=== PATIENT | male | born 1975 | race Hispanic/Latino ===

== ENCOUNTER 2021-11-01 10:53 | Outpatient (CLI) | payer BC, SELFPAY ==
--- NOTE | ~2021-11-01 | XR_ITS ---
XR shoulder LT min 2V DATE: 11/01/2021 11:15 INDICATION: Left shoulder pain following wrestling injury TECHNIQUE: 4 views of left shoulder COMPARISON: None FINDINGS: There is a screw through the midshaft of the left clavicle and a plate along the superior a spect of the clavicle, secured by 7 superolateral inferiorly directed screws. No residual fracture li ne is evident. Normal alignment at the acromioclavicular and glenohumeral joints. No recent fracture or dislocation, periosteal reaction or bone destruction or abnormal soft tissue calcification of the left shoulder IMPRESSION: Healed internally fixated old left clavicular shaft fracture; otherwise negative Reviewed, dictated and finalized at location B. IMPRESSION: Healed internally fixated old left clavicular shaft fracture; other romero negative
== END 2021-11-01 10:54 ==
LOC: MICIMG 10:55
PROVIDERS: PCP Internal Medicine; Visit Provider Chiropractor
DX: M25.512 Pain in left shoulder (principal)
CPT/HCPCS: 73030

== ENCOUNTER 2021-11-23 07:08 | Outpatient (CLI) | payer BC, SELFPAY ==
--- NOTE | ~2021-11-23 | MR_ITS ---
EXAMINATION: MR shoulder LT wo con DATE: 11/23/2021 07:53 INDICATION: Left rotator cuff tear TECHNIQUE: Magnetic resonance imaging (MRI) of the left shoulder was performed without intravenous co ntrast. Sequences included axial fluid sensitive FSE STIR, coronal oblique T1-weighted FSE, coronal o blique fluid sensitive FSE STIR, coronal oblique PD-weighted FS FSE sagittal T1-weighted FSE, sagitt al fluid sensitive FSE STIR. COMPARISON: Left shoulder radiographs dated 11/01/2021 FINDINGS: Bones: Magnetic field artifact along the left clavicle excision with interfragmentary screw and lateral plat e and screw fixation as seen on prior radiographs. No fracture or pathologic marrow replacing process . Mild cystic and hypertrophic change along the superior facet of the greater tuberosity. Coracoacromial arch: The acromion undersurface is curved in morphology (type II). The coracoacromial ligament is normal. A cromioclavicular joint is partially obscured with mild osteoarthritis evident on the recent prior rad iographs. Rotator cuff: Moderate supraspinatus and infraspinatus tendinopathy. There is a small full-thickness tear of the rodgers praspinatus tendon along the superior facet footplate of the greater tuberosity. The tear measures 1. 3 similar AP and 2.3 cm medial to lateral. There are a few residual intact fibers at the anteriormost aspect of the tendon. The teres minor tendon is normal. Mild subscapularis tendinopathy with very sm all intrasubstance split tear at the cephalad third of the lesser tuberosity footplate which likely e xtends to a 9 x 2 x 2 mm ganglion cyst within the subscapularis tendon approximately 3 cm medial from the footplate. Normal rotator cuff muscle bulk and signal. Biceps tendon, glenoid labrum and glenohumeral cartilage: Long head of the biceps tendon is normal. There is a superior, anterior to posterior tear of the susan oid labrum (SLAP tear) of the 11:00-12:00 position of the posterior superior glenoid labrum. Normal a nterosuperior sublingual foramen. Focal deep chondral fissuring with underlying subarticular cystlike changes at the posterior inferior glenoid. These cystic change extends approximately 11 mm craniocau gladys and 8 mm AP on the sagittal imaging. Partial-thickness cartilage loss with mild chondral surface irregularity along the inferomedial and posterior inferior aspect of the humeral head. Fluid: Small glenohumeral joint effusion with proportional extension of fluid into the long head biceps tend on sheath. No full-thickness rotator cuff tear defect into the subacromial/subdeltoid bursa. No loose osteochondral bodies. IMPRESSION: 1. Moderate supraspinatus and infraspinatus tendinopathy with small full-thickness tear along the sup erior facet footplate of the supraspinatus tendon. 2. Mild subscapularis tendinopathy with very small longitudinal split tear at the cephalad third of t he tendon. 3. Mild glenohumeral osteoarthritis with high-grade chondral malacia at the inferomedial aspect of th e glenoid. 4. SLAP tear at the 11:00-12:00 position of the posterior superior glenoid labrum. 5. Old left clavicle fracture with fragment. Screw and plate and screw fixation which obscures the cl avicle and acromioclavicular joint. Reviewed, dictated and finalized at location A. IMPRESSION: 1. Moderate supraspinatus and infraspinatus tendinopathy with small full-thickn ess tear along the superior facet footplate of the supraspinatus tendon. 2. Mild subscapularis tendinopathy with very small longitudinal split tear at t he cephalad third of the tendon. 3. Mild glenohumeral osteoarthritis with high-grade chondral malacia at the inf eromedial aspect of the glenoid. 4. SLAP tear at the 11:00-12:00 position of the posterior superio
== END 2021-11-23 07:09 ==
PROVIDERS: PCP Internal Medicine; Visit Provider Chiropractor
DX: M75.102 Unspecified rotator cuff tear or rupture of left shoulder, not specified as traumatic (principal); M19.012 Primary osteoarthritis, left shoulder; S43.432A Superior glenoid labrum lesion of left shoulder, initial encounter; X58.XXXA Exposure to other specified factors, initial encounter
CPT/HCPCS: 73221

== ENCOUNTER 2025-01-10 17:37 | Emergency (ER) | payer BC, SELFPAY ==
[2025-01-10 17:40] VITALS: BP 154/105; PULSE 43; RESP 22; TEMP 36.2; O2SAT 98
--- NOTE | 2025-01-10 17:42 | ED_ITS ---
HPI - Allergic Reaction General Chief complaint: Allergic Reaction <LAKESHA Monae Last Filed: 01/10/25 17:54> Stated complaint: allergic reaction <LAKESHA Monae Last Filed: 01/10/25 17:54> Time Seen by Provider: 01/10/25 17:42 <LAKESHA Monae Last Filed: 01/10/25 17:54> Focused HPI: Patient is a 49 y/o male who presents to the ED with concern for allergic reaction. Patient reports he began his prep today for a colonoscopy tomorrow. Was instructed to take 12 tablets of SUTAB. States he got through 6 of the tabs and began sneezing and feeling itchy all over. States he broke out into hives. States he is feeling very diaphoretic, short of breath, nauseous. States his face feels numb. GENERAL: Uncomfortable-appearing, well-nourished, and moderate acute distress HEAD: Normocephalic, atraumatic. CHEST: Clear to auscultation. ?No respiratory distress. Tachypneic. No stridor. HEART: Tachycardic with regular rhythm.? SKIN: Diffuse urticaria to trunk, extremities, abdomen. Pallor to face and lips NEURO: ?Alert and oriented x3. Patient screened in triage and initial orders placed.? ?Additional care and disposition to be based upon?diagnostic testing and treatment. <LAKESHA Monae Last Filed: 01/10/25 17:54> Source: patient <LAKESHA Monae Last Filed: 01/10/25 17:54> Mode of arrival: ambulatory <LAKESHA Monae Last Filed: 01/10/25 17:54> Limitations: no limitations <LAKESHA Monae Last Filed: 01/10/25 17:54> Related Data Allergies/adverse reactions: Allergies Allergy/AdvReac Type Severity Reaction Status Date / Time cortisone Allergy Unknown Rash Verified 01/10/25 17:52 <LAKESHA Monae Last Filed: 01/10/25 17:54> Review of Systems Review of Systems: All systems reviewed & are unremarkable except as noted in HPI and below <Aleisha Brunner PA-C - Last Filed: 01/10/25 20:55> PMFSH Past Medical History Medical History: Medical History (Updated 01/10/25 @ 20:28 by Aleisha Brunner PA-C) No history of diabetes mellitus No history of hypertension High cholesterol Notes is elevated, not on medication for it Torn ligament lt wrist and hand <Mikki Diana PA-C - Last Filed: 01/10/25 17:54> Surgical History Surgical History: Surgical History Clavicle fracture lt side with surgery <Mikki Diana PA-C - Last Filed: 01/10/25 17:54> Family History Family History: Family History (Updated 02/08/19 @ 11:47 by Mikki Dominguez) Father History of quadruple bypass <Mikki Diana PA-C - Last Filed: 01/10/25 17:54> Social History Social History: Social History Smoking status: Never smoker Alcohol intake: current Gender identity (if verbalized by the patient): Male <Mikki Diana PA-C - Last Filed: 01/10/25 17:54> Exam Narrative: GENERAL: Well-appearing, well-nourished, and in no acute distress. HEAD: Normocephalic, atraumatic. EYES: EOMI. ENT: Nares clear, no rhinorrhea or epistaxis. Mucous membranes moist. Oropharynx without tonsillar hypertrophy exudate or other lesions. NECK: Supple. No adenopathy or masses. CHEST: Clear to auscultation. No respiratory distress. No wheezes rales or rhonchi HEART: Regular rate and rhythm. No murmur heard. Normal peripheral pulses. EXTREMITIES: Normal range of motion. No edema. SKIN: Warm, dry. Diffuse urticaria NEURO: No focal deficits. Alert and oriented x3. PSYCH: Normal mood and affect <Aleisha Brunner PA-C - Last Filed: 01/10/25 20:55> Course Vital Signs Vital signs: Vital Signs Temperature 97.2 F L 01/10/25 17:40 Pulse Rate 43 L 01/10/25 17:40 Respiratory Rate 22 H 01/10/25 17:40 Blood Pressure 154/105 H 01/10/25 17:40 Pulse Oximetry 98 01/10/25 17:40 Oxygen Delivery Room Air 01/10/25 17:40 Temperature 97.2 F L 01/10/25 17:40 Pulse Rate 64 01/10/25 20:01 Respiratory Rate 22 H 01/10/25 20:01 Blood Pressure 151/96 H 01/10/25 20:01 Pulse Oximetry 100 01/10/25 20:01 Oxygen Delivery Room Air 01/10/25 17:40 <LAKESHA Monae Last Filed: 01/10/25 17:54> Vital Signs Temperature 97.2 F L 01/10/25 17:40 Pulse Rate 43 L 01/10/25 17:40 Respiratory Rate 22 H 01/10/25 17:40 Blood Pressure 154/105 H 01/10/25 17:40 Pulse Oximetry 98 01/10/25 17:40 Oxygen Delivery Room Air 01/10/25 17:40 Temperature 97.2 F L 01/10/25 17:40 Pulse Rate 64 01/10/25 20:01 Respiratory Rate 22 H 01/10/25 20:01 Blood Pressure 151/96 H 01/10/25 20:01 Pulse Oximetry 100 01/10/25 20:01 Oxygen Delivery Room Air 01/10/25 17:40 <LAKESHA Gupta Last Filed: 01/10/25 20:55> MDM - Allergic Reaction MDM Narrative Medical decision making narrative: MSE by GEOVANY in triage <LAKESHA Monae Last Filed: 01/10/25 17:54> MSE by GEOVANY in triage Patient presents to the ER for itchy rash, swelling. Had just taken doses of his prep pills for his colonoscopy. Patient with diffuse hives upon arrival. Feelings of difficulty breathing. Given epinephrine, pepcid, benadryl, iv fluids. Monitored in the ER for several hours with relief. Will be given prescription for epi-pen. He was given warnings to return to the ER <LAKESHA Gupta Last Filed: 01/10/25 20:55> Differential Diagnosis Differential diagnosis: Likely anaphylaxis, allergic reaction, angioedema, contact dermatitis, adverse reaction to drug and urticaria <LAKESHA Gupta Last Filed: 01/10/25 20:55> Critical Care Time Critical Care Time Critical Care Time: No <LAKESHA Gupta Last Filed: 01/10/25 20:55> Discharge Plan Discharge Clinical Impression: Allergic reaction Qualifiers: Encounter type: initial encounter Qualified Code(s): T78.40XA - Allergy, unspecified, initial encounter <LAKESHA Monae Last Filed: 01/10/25 17:54> Patient Disposition: Home <LAKESHA Monae Last Filed: 01/10/25 17:54> Condition: Improved <LAKESHA Monae Last Filed: 01/10/25 17:54> Instructions: General Allergic Reaction (ED) <LAKESHA Monae Last Filed: 01/10/25 17:54> Additional Instructions: Return to the emergency department if you experience difficulty swallowin g, trouble breathing, or any other symptoms that are concerning to you Take a Pepcid and Zyrtec daily. Benadryl as needed Follow-up with your primary care doctor <LAKESHA Monae Last Filed: 01/10/25 17:54> Patient Language: Ecuadorean <LAKESHA Monae Last Filed: 01/10/25 17:54> Prescriptions: New epinephrine [Auvi-Q] 0.3 mg/0.3 mL auto-injector 0.3 mg IM Q5-15M PRN (Reason: anaphylaxis) Qty: 2 0RF Rx Instructions: do not exceed 3 doses per episode <LAKESHA Monae Last Filed: 01/10/25 17:54> Follow-up/Referrals: Fabian Dupree DO [Physician, Internal Medicine] <Mikki Diana PA-C - Last Filed: 01/10/25 17:54>
[2025-01-10] MEDS: FAMOTIDINE 20 MG/2 ML VIAL IV PUSH (17:53)
[2025-01-10] MEDS: SODIUM CHLORIDE 0.9% IV 1,000 ML 999 ML IV CONT (17:55)
[2025-01-10] MEDS: EPINEPHrine HCL INJ 1 MG/ML AMPUL 0.3 MG IM (17:57)
--- OUTSIDE RECORDS SUMMARY | 2025-01-10 19:08 | XMS_ITS | Encounter Summary ---
Author Organization [facility] Address [address] [place] [address] Care Team Providers Care Elevator Troubleshooter Name Role Phone Fabian Dupree DO Primary Care Provider [phone] Janeen Nuñez Primary Care Provider [phone] Encounter Details Date Type Department Care Team (Late st Contact Info) Description 11/28/2019 Prep for Procedure [facility] [place], [place] [address] Aamir Rodas MD [address] [id number] Social History Tobacco Use Types Packs/Day Years Used Date Smoking Tobacco: Never Smokeless Tobacco: Never Alcohol Use Standard Drinks/Week Comments Yes 0 (1 standard drink = 0.6 oz pur e alcohol) once every 3 months Sex and Gender Information Value Date Recorded Sex Assigned at Male 05/20/2024 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 No / Unsure 11/25/2019 3:50 PM CDT documented as of this encounter Plan of Treatment Not on file documented as of this encounter Visit Diagnoses Diagnosis Weight loss- Primary Loss of weight documented in this encounter Care Teams Elevator Troubleshooter Relationship Specialty Start Date End Date Fabian Dupree DO [address] [facility] [address] [place] [address] PCP - General INTERNAL MEDICINE 10/19/20 05/01/23 Janeen Nuñez FNP [facility] [place] [address] PCP - General Nurse Practitioner Family 05/02/23 documented as of this encounter
--- OUTSIDE RECORDS SUMMARY | 2025-01-10 19:08 | XMS_ITS | Encounter Summary ---
Author Organization [facility] Address [address] [place] [address] Care Team Providers Care Enrollment Services Dean Name Role Phone Fabian Dupree DO Primary Care Provider [phone] Janeen Nuñez Primary Care Provider [phone] Encounter Details Date Type Department Care Team (Late st Contact Info) Description 10/20/2020 Prep for Procedure [facility] [place] [address] Pipe Chase DO [address] [place] [address] [address] [place] [address] Social History Tobacco Use Types Packs/Day Years Used Date Smoking Tobacco: Never Smokeless Tobacco: Never Alcohol Use Standard Drinks/Week Comments Yes 0 (1 standard drink = 0.6 oz pur e alcohol) once every 3 months Sex and Gender Information Value Date Recorded Sex Assigned at Male 05/20/2024 9:17 AM 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 Legal Sex Male 8:02 PM CDT Gender Identity Not on file Sexual Orientation Not on file documented as of this encounter Plan of Treatment Not on file documented as of this encounter Visit Diagnoses Diagnosis Ulcerative colitis ([facility]/HCC [facility]/HCC)- Primary Ulcerative colitis, unspecified documented in this encounter Care Teams Enrollment Services Dean Relationship Specialty Start Date End Date Fabian Dupree DO [address] [place] [address] PCP - General INTERNAL MEDICINE 10/19/20 05/01/23 Janeen Nuñez FNP [address] [place] [address] PCP - General Nurse Practitioner Family 05/02/23 documented as of this encounter
--- OUTSIDE RECORDS SUMMARY | 2025-01-10 19:08 | XMS_ITS | Clinical Summary ---
Author Organization [facility] Address [address] [place] [address] Care Team Providers Care Knockdown Worker Name Role Phone Janeen Nuñez NOHEMI Primary Care Provider [phone] Allergies Active Allergy Reactions Criticality Noted Date Comments Octacosanol Hives 11/25/2019 Cortisone Hives 11/25/2019 Bisacodyl Hives 03/14/2022 Polyethylene Glycol Hives 03/14/2022 Medications albuterol sulfate HFA 108 (90 Base) MCG/ACT inhalerIndicatio ns:Cough INHALE 2 PUFFS INTO THE LUNGS BY MOUTH EVERY 6 HOURS NEEDED FOR WHEEZING 8.5 g 4 Active famotidine (PEPCID) 20 MG tabletIndication s:Gastroesophage al reflux disease, unspecified whether esophagitis present Take 1 tablet (20 mg total) by mouth 2 (two) times daily. 60 tablet 1 4 Active SYRINGE-NEEDLE, DISP, 3 ML (LUER LOCK SAFETY SYRINGES) 23G X 1 3 ML MiscIndications: Hypogonadism in male,Low testosterone in male To use with testosterone injections every 7 days 50 each 1 4 Active mesalamine ER (APRISO) 0.375 g CAPSULE SR 24 HR 24 hr capsuleIndicatio ns:Other ulcerative colitis without complication (CMS/HCC HHS/HCC) TAKE 1 CAPSULE(375 MG) BY MOUTH DAILY 30 capsule 1 4 Active testosterone cypionate (DEPO TESTOSTERONE) 200 MG/ML injectionIndicat ions:Hypogonadis m in male,Low testosterone in male ADMINISTER 1 ML(200 MG) IN THE MUSCLE EVERY 7 DAYS 10 mL 2 5 Active Active Problems Problem Noted Date Diagnosed Date Mass of chest wall, left 12/01/2023 Gastroesophageal reflux dise ase, unspecified whether esophagitis present 12/01/2023 Class 1 obesity due to exces s calories without serious comorbidity with body mass index (BMI) of 32.0 to 32.9 in adult 05/02/2023 Vitamin D deficiency, unspecified 05/02/2023 Hx of pulmonary embolus 05/02/2023 Other ulcerative colitis without complication Primary insomnia 05/02/2023 Hypogonadism in male 05/02/2023 Low testosterone in male 05/02/2023 Acute bronchitis, unspecified organism 4 Tear of left scapholunate ligament 02/25/2019 Overview (05/02/2023): Added automatically from request for surgery [id number] Chronic pain of left wrist 02/25/2019 Overview (05/02/2023): Added automatically from request for surgery [id number] Encounters Date Type Department Care Team Description 11/15/2024 BuyWithMe Message Enc [facility] Family & Internal Medicine [address] [phone] Janeen Nuñez FNP gastrologist from Last 3 Months Immunizations Immunization Administration Dates Next Due Hepatitis A (Havrix [address]) 01/21/2023 Influenza Adult (Generic) 02/14/2019 Tdap (Adacel) 05/02/2023 Family History Medical History Relation Comments Diabetes Father Heart Disease Father Relation Status Comments Father Maternal Grandfather Maternal Grandmother Mother Alive Paternal Grandfather Paternal Grandmother Social History Tobacco Use Types Packs/Day Years Used Date Smoking Tobacco: Never Passive Smoke Exposure: Never Smokeless Tobacco: Never Alcohol Use Standard Drinks/Week Comments Not Currently 0 (1 standard drink = 0.6 oz pur e alcohol) once every 3 months PHQ-2 Answer Date Recorded Patient Health Questionnaire-2 Score 0 07/02/2024 Sex and Gender Information Value Date Recorded Sex Assigned at Male 05/20/2024 9:17 AM 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 Legal Sex Male 8:02 PM CDT Gender Identity Not on file Sexual Orientation Not on file Last Filed Vital Signs Vital Sign Reading Time Taken Comments Blood Pressure 128/86 07/02/2024 8:20 AM CDT Pulse 71 07/02/2024 8:20 AM CDT Temperature 36.8 C (98.2 F) 07/02/2024 8:20 AM CDT Respiratory Rate 16 07/02/2024 8:20 AM CDT Oxygen Saturation 96% 07/02/2024 8:20 AM CDT Inhaled Oxygen Concentration - - Weight 100.2 kg (220 lb 12.8 oz) 07/02/2024 8:20 AM CDT Height 175.3 cm (5' 9) 07/02/2024 8:20 AM CDT Body Mass Index 32.61 07/02/2024 8:20 AM CDT Plan of Treatment Health Maintenance Due Date Last Done Comments Annual Physical 1977 Hepatitis B Vaccines (1 of 3 - 19+ 3-dose series) 1993 Pneumococcal Vaccine: 50+ Years (1 of 1 - PCV) 2024 Zoster Vaccines (1 of 2) 2024 COVID-19 Vaccine (1 - 2023- season) 2024 Influenza Adult (#1) 2024 02/14/2019 Colorectal Cancer Screening Colonoscopy (10 Years) 03/14/2032 03/14/2022, 03/14/2022, 03/14/2022, Additional history exists DTaP, Tdap and Td Vaccines (2 - Td or Tdap) 05/02/2033 05/02/2023 Hepatitis C Completed 03/14/2022, 09/15/2020 Hepatitis A Vaccines Aged Out 01/21/2023 No long er eligible based on patient's age to complete this topic PHQ-2 (Physician [place]) Completed 07/02/2024 Meningococcal B Vaccine Aged Out No l onger eligible based on patient's age to complete this topic Meningococcal Vaccine Aged Out No nona denia eligible based on patient's age to complete this topic RSV Immunizations Under 20 Months Aged Out No longer eligible based on patient's age to complete this topic Procedures Procedure Name Priority Date/Time Associated Diagnosis Comments HC EIA QL HEPATITIS ABC B AG Routine 03/14/2022 8:03 AM GARMENT CUTTER COLONOSCOPY Routine 03/14/2022 6:07 AM GARMENT CUTTER from Last 3 Months or Most Recently Relevant to Health Maintenance Results * HEPATITIS A,B,& C (03/14/2022 8:03 AM GARMENT CUTTER) HEPATITIS B SURFACE AG NON-REACTIVE NON-REACT SILVANO 03/14/2022 10:03 AM GARMENT CUTTER [facility] HEP B CORE TOTAL AB NON-REACTIVE NON-REACT SILVANO 03/14/2022 10:03 AM GARMENT CUTTER [facility] HEP B SURFACE AB REACTIVE 03/14/2022 10:03 AM GARMENT CUTTER [facility] HAV IGM NON-REACTIVE NON-REACT SILVANO 03/14/2022 10:03 AM GARMENT CUTTER [facility] HEPATITIS C AB NON-REACTIVE NON-REACT SILVANO 03/14/2022 10:03 AM GARMENT CUTTER [facility] 03/14/2022 8:03 AM GARMENT CUTTER Pipe Chase DO LABORATORY Final Result [facility] [address] [place] [address], [place] [phone] * COLONOSCOPY GENERIC (SCAN ORDER) (03/14/2022) 03/14/2022 [facility] Scanned SCANNING Final Resu lt from Last 3 Months or Most Recently Relevant to Health Maintenance Insurance [employer] Care Teams Knockdown Worker Relationship Specialty Start Date End Date Janeen Nuñez FNP [address] [place], [place] [phone] PCP - General Nurse Practitioner Family 05/02/23
--- OUTSIDE RECORDS SUMMARY | 2025-01-10 19:08 | XMS_ITS | Clinical Summary ---
Author Organization [facility] Address [address] [place] [address] Care Team Providers Care Shop Service Technician Name Role Phone Fabian Dupree DO Primary Care Provider Allergies Active Allergy Reactions Criticality Noted Date Comments Cortisone Anaphylaxis,Rash High 12/23/2018 Octacosanol Hives Medium 11/25/2019 Polyethylene Glycol Hives Medium 03/14/2022 Medications EPINEPHrine (EPIPEN) 0.3 mg/0.3 mL auto-injection syringeIndications: Anaphylaxis Inject 0.3 mL (0.3 mg total) into the muscle as instructed as needed for anaphylaxis 2 Syringe 12/24/19 19 Active Additional Information Patient not taking.Reported on 12/22/2024 raltegravir (ISENTRESS) 400 mg tablet Take 1 tablet (400 mg total) by mouth 2 (two) times a day for 28 days 56 tablet 09/16/19 21 Active Additional Information Patient not taking.Reported on 12/22/2024 ondansetron ODT (ZOFRAN-ODT) 4 mg disintegrating tablet Take 1 tablet (4 mg total) by mouth every 8 (eight) hours as needed for nausea or vomiting 20 tablet 09/16/19 21 Active Additional Information Patient not taking.Reported on 12/22/2024 testosterone cypionate (DEPO-TESTOTERONE) 200 mg/mL injection Inject 1 mL (200 mg total) into the muscle as instructed every 14 (fourteen) days 08/31/19 25 Active albuterol HFA (PROVENTIL HFA,VENTOLIN HFA,PROAIR HFA) 90 mcg/actuation inhaler 1 puff every 6 (six) hours as needed 02/11/20 20 Active ondansetron ODT (ZOFRAN-ODT) 4 mg disintegrating tabletIndications:U lcerative colitis with complication, unspecified location (HCC),Dysphagia, unspecified type,Regurgitation of food,Gastroesophage al reflux disease, unspecified whether esophagitis present Take 1 tablet (4 mg total) by mouth every 6 (six) hours as needed for nausea or vomiting 2 tablet 12/23/19 25 Active sod sulf-pot chloride-mag sulf (Sutab) 1.479-0.188- 0.225 gram tabletIndications:U lcerative colitis with complication, unspecified location (HCC),Dysphagia, unspecified type,Regurgitation of food,Gastroesophage al reflux disease, unspecified whether esophagitis present Take 12 tablets by mouth 2 (two) times a day Take as directed by GI office 24 tablet 12/23/19 25 Active apixaban (ELIQUIS) 5 mg tablet Take 5 mg by mouth 2 (two) times a day 025 Discontin ued(Thera py completed ) diphenhydrAMINE (diphenhydrAMINE) 25 mg capsule Take 1-2 tablet/capsule (25-50 mg total) by mouth every 4 (four) hours as needed for itching (1 capsule for mild to moderate itching or 2 capsules for severe itching.) 20 capsule 12/24/19 19 025 Discontin ued(Thera py completed ) HYDROcodone-acetami nophen (NORCO) 5-325 mg per tabletIndications:P ain Take 1 tablet by mouth every 6 (six) hours as needed for pain 15 tablet 03/01/20 19 025 Discontin ued(Thera py completed ) emtricitabine-tenof ovir disoproxil fumerate (TRUVADA) 200-300 mg per tablet Take 1 tablet by mouth daily for 28 days 28 tablet 09/16/19 21 025 Discontin ued(Thera py completed ) mesalamine (APRISO) 0.375 gram 24 hr capsule Take 1 capsule (0.375 g total) by mouth daily as needed 03/22/20 24 025 Discontin ued(Thera py completed ) Active Problems Problem Noted Date Diagnosed Date Ulcerative colitis with complication 12/22/2024 Assessment & Plan (12/22/2024 11:04 AM CDT): Patient reports history of ulcerative colitis, diagnosed greater than 20 years ago. Reports he does not currently take anything daily for ulcerative colitis, he reports he has 1 flare a year proximally. He manages with dietary changes. He is due for colonoscopy. We will order surveillance colonoscopy today. Orders: ondansetron ODT (ZOFRAN-ODT) 4 mg disintegrating tablet; Take 1 tablet (4 mg total) by mouth every 6 (six) hours as needed for nausea or vomiting Case Request Operating Room: ESOPHAGOGASTRODUODENOSCOPY, COLONOSCOPY sod sulf-pot chloride-mag sulf (Sutab) 1.479-0.188- 0.225 gram tablet; Take 12 tablets by mouth 2 (two) times a day Take as directed by GI office Dysphagia 12/22/2024 Assessment & Plan (12/22/2024 11:04 AM CDT): Patient reports dysphagia, new onset over the last several months. Reports association of regurgitation of food with acid reflux. Does not currently take anything for acid reflux. Recommend [id number] Nexium daily before breakfast or Pepcid as needed for breakthrough symptoms of acid reflux. Recommend avoiding acid triggering foods. Recommend EGD with possible dilation for dysphagia. Orders: ondansetron ODT (ZOFRAN-ODT) 4 mg disintegrating tablet; Take 1 tablet (4 mg total) by mouth every 6 (six) hours as needed for nausea or vomiting Case Request Operating Room: ESOPHAGOGASTRODUODENOSCOPY, COLONOSCOPY sod sulf-pot chloride-mag sulf (Sutab) 1.479-0.188- 0.225 gram tablet; Take 12 tablets by mouth 2 (two) times a day Take as directed by GI office Regurgitation of food 12/22/2024 Assessment & Plan (12/22/2024 11:04 AM CDT): Patient reports dysphagia, new onset over the last several months. Reports association of regurgitation of food with acid reflux. Does not currently take anything for acid reflux. Recommend [id number] Nexium daily before breakfast or Pepcid as needed for breakthrough symptoms of acid reflux. Recommend avoiding acid triggering foods. Recommend EGD with possible dilation for dysphagia. Orders: ondansetron ODT (ZOFRAN-ODT) 4 mg disintegrating tablet; Take 1 tablet (4 mg total) by mouth every 6 (six) hours as needed for nausea or vomiting Case Request Operating Room: ESOPHAGOGASTRODUODENOSCOPY, COLONOSCOPY sod sulf-pot chloride-mag sulf (Sutab) 1.479-0.188- 0.225 gram tablet; Take 12 tablets by mouth 2 (two) times a day Take as directed by GI office Gastroesophageal reflux disease 12/22/2024 Assessment & Plan (12/22/2024 11:04 AM CDT): Patient reports dysphagia, new onset over the last several months. Reports association of regurgitation of food with acid reflux. Does not currently take anything for acid reflux. Recommend pgkq-hfi-kyzyeqh Nexium daily before breakfast or Pepcid as needed for breakthrough symptoms of acid reflux. Recommend avoiding acid triggering foods. Recommend EGD with possible dilation for dysphagia. Orders: ondansetron ODT (ZOFRAN-ODT) 4 mg disintegrating tablet; Take 1 tablet (4 mg total) by mouth every 6 (six) hours as needed for nausea or vomiting Case Request Operating Room: ESOPHAGOGASTRODUODENOSCOPY, COLONOSCOPY sod sulf-pot chloride-mag sulf (Sutab) 1.479-0.188- 0.225 gram tablet; Take 12 tablets by mouth 2 (two) times a day Take as directed by GI office Chronic pain of left wrist 02/25/2019 Overview (02/25/2019): Added automatically from request for surgery [id number] Tear of left scapholunate ligament 02/25/2019 Overview (02/25/2019): Added automatically from request for surgery [id number] Encounters Date Type Department Care Team Description 12/22/2024 9:30 AM CDT Office Visit [facility] at [address] [place] [phone] Aleisha Mckinnon, RUBENS Ulcerative colitis with complication, unspecified location (HCC) (Primary Dx); Dysphagia, unspecified type; Regurgitation of food; Gastroesophageal reflux disease, unspecified whether esophagitis present from Last 3 Months Surgical History Surgery Date Site/Laterality Comments CLOSED REDUCTION CLAVICLE FRACTURE Left open reduction with metal implants COLONOSCOPY ROTATOR CUFF REPAIR Left 2021 Medical History Medical History Date Comments Pulmonary embolism 11/11/2018 unsure of lavern gin, possibly related to sedentary job, now clots resolved, being worked up for hereditary factors Clavicle fracture 2010 Ulcerative colitis controlled, n o flare ups for 4 years Family History Medical History Relation Name Comments Heart attack Father Heart disease Father Relation Name Status Comments Father Social History Tobacco Use Types Packs/Day Years Used Date Smoking Tobacco: Never Smokeless Tobacco: Never Alcohol Use Standard Drinks/Week Comments Yes 0 (1 standard drink = 0.6 oz pur e alcohol) 1X q year AUDIT-C Answer Date Recorded Q1: How often do you have a drink containing alc ohol? Monthly or less 12/29/2024 Q2: How many drinks containi ng alcohol do you have on a typical day when you are drinking? 1 or 2 12/29/2024 Q3: How often do you have si x or more drinks on one occasion? 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 Gender Identity Not on file Sexual Orientation Not on file Obstetrics History Last Filed Vital Signs Vital Sign Reading Time Taken Comments Blood Pressure 144/82 12/22/2024 9:36 AM CDT Pulse 63 12/22/2024 9:36 AM CDT Temperature 36.7 C (98.1 F) 09/15/2020 4:57 AM CDT Respiratory Rate 18 09/15/2020 4:57 AM CDT Oxygen Saturation 99% 09/15/2020 4:57 AM CDT Inhaled Oxygen Concentration - - Weight 98.9 kg (218 lb) 12/22/2024 9:36 AM CDT Height 175.3 cm (5' 9) 12/22/2024 9:36 AM CDT Body Mass Index 32.19 12/22/2024 9:36 AM CDT Plan of Treatment Upcoming Encounters Date Type Department Care Team (Latest Contact Info) Description 01/11/2025 8:00 AM CDT Hospital Encounter [facility] [address] [place] [address] Colt Miller MD [address] [place] [address] 01/11/2025 8:00 AM CDT - 01/11/2025 8:30 AM CDT Surgery [facility] [address] [place] [address] Colt Miller MD [facility] [place] [address] ESOPHAGOGASTRODUODENOSCOPY Scheduled Procedures Name Priority Associated Diagnoses Date/Ti me ESOPHAGOGASTRODUODENOSCOPY Ulcerative colitis with complication, unspecified location (HCC) Dysphagia, unspecified type Regurgitation of food Gastroesophageal reflux disease, unspecified whether esophagitis present 01/11/2025 8:00 AM CDT COLONOSCOPY Ulcerative colitis with complication, unspecified location (HCC) Dysphagia, unspecified type Regurgitation of food Gastroesophageal reflux disease, unspecified whether esophagitis present 01/11/2025 8:00 AM CDT Health Maintenance Due Date Last Done Comments Colon Cancer Screening-Colonoscopy 1974 Depression Screening 1974 Prostate Cancer Screening-PSA 1974 DTaP/Tdap/Td Vaccine (1 - Tdap) 1985 Regular Well Visit/Exam 18-64 1992 Zoster Vaccine (1 of 2) 2024 Influenza Vaccine (#1) 2024 02/14/2019 Hepatitis B Screening Completed 09/15/2020 Hepatitis C Screening Completed 09/15/2020 Pneumococcal vaccine <65 Aged Out No longer eligible based on patient's age to complete this topic Medical Devices Implanted Type Area Cook Dinner Device Identifier Shelf Expiration Date Model / Serial / Lot Plate Left: Clavicle [employer] Ar-8978-Cp Internalbrace Kit Hand Wrist Set Implant Ligament Augmentation - [id number] Implanted:Qty: 1 on 03/01/2019 by Gabriel Sanders MD at [facility] Left: Wrist [employer] 12/22/2023 AR-89 78-CP / / [id number] [employer] Ar-8978p Dx Swivelock Sl 3.5mm 8.5mm [place] Eyelet [place] Suture Sterile - S0 - [id number] Implanted:Qty: 1 on 03/01/2019 by Gabriel Sanders MD at [facility] [place] Left: Wrist [employer] 01/22/2024 AR-89 78P / 0 / Explanted Type Area Cook Dinner Device Identifier Shelf Expiration Date Model / Serial / Lot [employer] [id number] Nadine .035in 9in Trocar Wire Fixation Nonsterile - S0 - [id number] Implanted:Qty: 1 Explanted:Qty: 1 on 03/01/2019 at [facility] [place] Left: Wrist [employer] [id number] S / 0 / Procedures Procedure Name Priority Date/Time Associated Diagnosis Comments HEPATITIS PANEL, ACUTE STAT 09/15/2020 4:59 AM CDT from Last 3 Months or Most Recently Relevant to Health Maintenance Results * Hepatitis panel, acute (09/15/2020 4:59 AM CDT) Hep A IgM Nonreactive Nonreactive [facility] Comment: Interpretive Data: If Hep A IgM Ab is reported as Equivocal, a new sample should be drawn in two weeks for testing. Current interpretive data was last revised on 19. Hep B core IgM Nonreactive Nonreactive [facility] Comment: Interpretive Data If HepB Core IgM Ab is reported as Equivocal, a new sample should be drawn in two weeks for testing. Current interpretive data was last revised on 19. Hep C Ab Nonreactive Nonreactive [facility] Comment: Interpretive Data Nonreactive: Antibodies to HCV not detected. Does NOT exclude the possibility of recent exposure to HCV. Equivocal: Equivocal for HCV antibodies. Supplemental molecular testing will be automatically performed to determine infection status in accordance with current CDC screening recommendations. Reactive: Positive for HCV antibodies. This may represent current or past HCV infection. Supplemental molecular testing will be automatically performed to determine current infection status in accordance with current CDC screening recommendations. Interpretive data was last revised on 2019. HepBsAg Nonreactive Nonreactive [facility] Blood specimen (specimen) 09/15/2020 4:59 AM CDT 09/15/2020 5:02 AM CDT [facility] MICROBIOLOGY - GENERAL O RDERABLES Final Result [facility] [address] [facility] Department [place] [address] from Last 3 Months or Most Recently Relevant to Health Maintenance Insurance [place] [employer] [facility] [place] [place] Care Teams Shop Service Technician Relationship Specialty Start Date End Date Fabian Dupree DO PCP - General Internal Medicine 11/20/18
[2025-01-10 20:01] VITALS: BP 151/96; PULSE 64; RESP 22; O2SAT 100
== END 2025-01-10 20:58 | disposition home or self-care (01) ==
PROVIDERS: Emergency Provider Physician Assistant; PCP Nurse Practitioner Family
DX: T78.40XA Allergy, unspecified, initial encounter (principal)
CPT/HCPCS: 96361; 96372; 96374; 96375; 99284; J0166; J1200; J7030